=== PATIENT | female | born 1980 | race Hispanic/Latino ===

== ENCOUNTER 2018-07-11 20:01 | Emergency (ER) | payer SELFPAY ==
[2018-07-11 21:43] LABS: Urine Blood 3+ (NEG); Urine Glucose NEGATIVE (NEG); Urine Protein NEGATIVE (NEG); Urine Specific Gravity 1.025 (1.005-1.030); Urine pH 6.5 (5.0-7.0)
[2018-07-11 22:04] LABS: Absolute Lymphocytes (CBC) 3.1 K/uL (0.7-4.9); Absolute Monocytes 0.6 K/uL (0.1-1.3); Absolute Neutrophil 4.3 K/uL (1.8-8.0); Basophils % 0.6 % (0-1.3); Eosinophils % 1.7 % (0-4.4); Hematocrit 42.3 % (36.0-45.0); Lymphocytes % 37.8 % (15.3-44.8); MCH 31.4 pg (27.0-35.0); MCV 90.4 fL (80-100); MPV 9.9 fL (7.6-11.3); Monocytes % 7.2 % (3.3-12.3); RBC Red Blood Cell Count 4.68 M/uL (3.86-4.86)
[2018-07-11] MEDS ORDERED: NA CHLORIDE 0.9% 1,000 ML ONE (22:24)
[2018-07-11] MEDS ORDERED: PANTOPRAZOLE 40 MG INJ ONE (22:24)
[2018-07-11 22:32] LABS: Albumin 4.2 g/dL (3.4-5.0); Bilirubin Direct 0.1 mg/dL (0-0.2); Bilirubin Total 0.4 mg/dL (0.2-1.0); Potassium 3.7 mmol/L (3.5-5.1); Protein, Total 7.9 g/dL (6.4-8.2)
--- NOTE | 2018-07-11 23:02 | EDPHYS ---
Physician Documentation [facility] Name: Charmaine Motley Age: 37 yrs Sex: Female : 1980 Arrival Date: 07/11/2018 Time: 20:09 Bed 18 Private MD: ED Physician Osiel Concepcion HPI: 07/11 21:35 This 37 yrs old Female presents to ER via Ambulatory with complaints of Bloody yasmin Stools. 21:35 The patient presents with abdominal pain in the epigastric area. Onset: The yasmin symptoms/episode began/occurred 3 day(s) ago. The symptoms do not radiate. Associated signs and symptoms: Pertinent positives: blood in stools, palpitations. Modifying factors: The symptoms are alleviated by nothing, the symptoms are aggravated by nothing. Severity of pain: At its worst the pain was mild in the emergency department the pain is unchanged. 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 - Social history:: Smoking status: Patient/guardian denies using tobacco. - Ebola Screening: : No symptoms or risks identified at this time. - Family history:: not pertinent. ROS: 21:35 Constitutional: Negative for fever, chills, and weight loss, Eyes: Negative for injury, yasmin pain, redness, and discharge, ENT: Negative for injury, pain, and discharge, Neck: Negative for injury, pain, and swelling, Cardiovascular: Negative for chest pain, palpitations, and edema, Respiratory: Negative for shortness of breath, cough, wheezing, and pleuritic chest pain, : Negative for injury, bleeding, discharge, and swelling, MS/Extremity: Negative for injury and deformity, Skin: Negative for injury, rash, and discoloration, Neuro: Negative for headache, weakness, numbness, tingling, and seizure. 21:35 Abdomen/GI: Positive for rectal bleeding. Exam: 21:35 Constitutional: This is a well developed, well nourished patient who is awake, alert, yasmin and in no acute distress. Head/Face: Normocephalic, atraumatic. Eyes: Pupils equal round and reactive to light, extra-ocular motions intact. Lids and lashes normal. Conjunctiva and sclera are non-icteric and not injected. Cornea within normal limits. Periorbital areas with no swelling, redness, or edema. ENT: Nares patent. No nasal discharge, no septal abnormalities noted. Tympanic membranes are normal and external auditory canals are clear. Oropharynx with no redness, swelling, or masses, exudates, or evidence of obstruction, uvula midline. Mucous membranes moist. Neck: Trachea midline, no thyromegaly or masses palpated, and no cervical lymphadenopathy. Supple, full range of motion without nuchal rigidity, or vertebral point tenderness. No Meningismus. Chest/axilla: Normal chest wall appearance and motion. Nontender with no deformity. No lesions are appreciated. Cardiovascular: Regular rate and rhythm with a normal S1 and S2. No gallops, murmurs, or rubs. Normal PMI, no JVD. No pulse deficits. Respiratory: Lungs have equal breath sounds bilaterally, clear to auscultation and percussion. No rales, rhonchi or wheezes noted. No increased work of breathing, no retractions or nasal flaring. Back: No spinal tenderness. No costovertebral tenderness. Full range of motion. Skin: Warm, dry with normal turgor. Normal color with no rashes, no lesions, and no evidence of cellulitis. MS/ Extremity: Pulses equal, no cyanosis. Neurovascular intact. Full, normal range of motion. Neuro: Awake and alert, GCS 15, oriented to person, place, time, and situation. Cranial nerves II-XII grossly intact. Motor strength 5/5 in all extremities. Sensory grossly intact. Cerebellar exam normal. Normal gait. Psych: Awake, alert, with orientation to person, place and time. Behavior, mood, and affect are within normal limits. 21:35 Abdomen/GI: Rectal exam: is unremarkable, rectal tone normal, Stool: normal, guaiac negative, Liver: no appreciated palpable abnormalities, Hernia: not appreciated. Vital Signs: 20:43 BP 115 / 110; Pulse 79; Resp 18; Temp 97.2; Pulse Ox 100% ; Weight 52.62 kg; Height 5 ea ft. 2 in. (157.48 cm); Pain 0/10; 21:30 BP 137 / 83; Pulse 65; Resp 18; Pulse Ox 98% on R/A; ea 22:30 BP 145 / 81; Pulse 60; Resp 16; Pulse Ox 98% on R/A; ea 23:51 BP 144 / 86; Pulse 78; Resp 18; Pulse Ox 99% on R/A; ea 20:43 Body Mass Index 21.22 (52.62 kg, 157.48 cm) MDM: 21:14 Patient medically screened. [facility] 21:38 Data reviewed: vital signs, nurses notes, lab test result(s), EKG. [facility] 07/11 21:02 Order name: Basic Metabolic Panel; Complete Time: 23:00 07/11 21:02 Order name: CBC with Diff; Complete Time: 23:00 07/11 21:02 Order name: Hepatic Function; Complete Time: 23:00 07/11 21:02 Order name: Lipase; Complete Time: 23:00 07/11 21:23 Order name: Troponin (emerg Dept Use Only); Complete Time: 23:00 [facility] 07/11 21:11 Order name: EKG; Complete Time: 21:12 mt 07/11 21:36 Order name: Urine Dipstick--Ancillary (enter results); Complete Time: 23:00 ms 07/11 21:36 Order name: Urine --Ancillary (enter results); Complete Time: 23:00 ms 07/11 21:02 Order name: IV Saline Lock; Complete Time: 21:10 07/11 21:02 Order name: Labs collected and sent; Complete Time: 21:10 07/11 21:11 Order name: EKG - Nurse/Tech; Complete Time: 21:11 mt Administered Medications: 22:15 Drug: NS 0.9% 1000 ml Route: IV; Rate: 1 bolus; Site: left antecubital; ea 23:50 Follow up: Response: No adverse reaction; IV Status: Completed infusion; IV Intake: ea 1000ml 22:15 Drug: ProTONIX 40 mg Route: IVP; Site: left antecubital; ea 23:51 Follow up: Response: No adverse reaction ea 23:20 Drug: Cipro 500 mg Route: PO; ea 23:51 Follow up: Response: No adverse reaction ea 23:20 Drug: Norvasc 5 mg Route: PO; ea 23:51 Follow up: Response: No adverse reaction ea Disposition: 07/11/18 23:02 Discharged to Home. Impression: Functional dyspepsia, Gastrointestinal hemorrhage, unspecified - lower, stable, Essential (primary) hypertension, Urinary tract infection, site not specified. - Condition is Stable. - Discharge Instructions: Gastrointestinal Bleeding, Hypertension, Indigestion, Rectal Bleeding, Urinary Tract Infection, Adult, Indigestion, [id number], Rectal Bleeding, [id number], Managing Your Hypertension. - Prescriptions for Protonix 40 mg Oral Tablet - take 1 tablet by ORAL route once daily; 30 tablet. Bentyl 20 mg Oral Tablet - take 1 tablet by ORAL route every 6 hours As needed; 20 tablet. Cipro 250 mg Oral Tablet - take 1 tablet by ORAL route every 12 hours; 10 tablet. Norvasc 5 mg Oral Tablet - take 1 tablet by ORAL route once daily; 20 tablet. - Medication Reconciliation Form, Thank You Letter, Antibiotic Education, Prescription Opioid Use form. - Follow up: Private Physician; When: 2 - 3 days; Reason: Recheck today's complaints, Continuance of care, Re-evaluation by your physician. Follow up: Eric Oliver; When: 2 - 3 days; Reason: Recheck today's complaints, Re-evaluation by your physician. - Problem is new. - Symptoms have improved. Signatures: Dispatcher [employer] [facility] Osiel Concepcion MD MD cha Thompson, [facility] Michelle Marie RN RN ea Corrections: (The following items were deleted from the chart) 22:48 21:03 Creatinine for Radiology+C.LAB.BRZ ordered. [facility] 23:53 23:02 07/11/2018 23:02 Discharged to Home. Impression: Functional dyspepsia; ea Gastrointestinal hemorrhage, unspecified - lower, stable; Essential (primary) hypertension; Urinary tract infection, site not specified. Condition is Stable. Discharge Instructions: Gastrointestinal Bleeding, Indigestion, Rectal Bleeding, Indigestion, [id number], Rectal Bleeding, Jkzm-pu-Pcnw. Prescriptions for Protonix 40 mg Oral Tablet - take 1 tablet by ORAL route once daily; 30 tablet, Bentyl 20 mg Oral Tablet - take 1 tablet by ORAL route every 6 hours As needed; 20 tablet. and Forms are Medication Reconciliation Form, Thank You Letter, Antibiotic Education, Prescription Opioid Use. Follow up: Private Physician; When: 2 - 3 days; Reason: Recheck today's complaints, Continuance of care, Re-evaluation by your physician. Follow up: Eric Oliver; When: 2 - 3 days; Reason: Recheck today's complaints, Re-evaluation by your physician. Problem is new. Symptoms have improved. yasmin
--- NOTE | 2018-07-11 23:02 | ER ---
Nurse's Notes [facility] Name: Charmaine Motley Age: 37 yrs Sex: Female : 1980 Arrival Date: 07/11/2018 Time: 20:09 Bed 18 Private MD: Diagnosis: Functional dyspepsia;Gastrointestinal hemorrhage, unspecified-lower, stable;Essential (primary) hypertension;Urinary tract infection, site not specified Presentation: 07/11 20:39 Presenting complaint: Patient states: Pt reports she started having acid reflux for the ea past three weeks, had one bright red bloody stool on Monday. Pt reported she went to a clinic in [place] about a week ago and was diagnosed with gastritis and was prescribed Flagyl. Pt verbalized she has been very anxious about her health and has lost 20 pounds in the past three weeks. Transition of care: patient was not received from another setting of care. Onset of symptoms was July 11, 2018. Risk Assessment: Do you want to hurt yourself or someone else? Patient reports no desire to harm self or others. Initial Sepsis Screen: Does the patient meet any 2 criteria? No. Patient's initial sepsis screen is negative. Does the patient have a suspected source of infection? No. Patient's initial sepsis screen is negative. Care prior to arrival: None. 20:39 Method Of Arrival: Ambulatory ea 20:39 Acuity: JOSEE 3 ea Triage Assessment: 20:44 General: Appears in no apparent distress. Behavior is cooperative, appropriate for age, ea anxious. Pain: Denies pain. Neuro: Level of Consciousness is awake, alert, obeys commands, Oriented to person, place, time, situation. Cardiovascular: Heart tones S1 S2 present Patient's skin is warm and dry. Respiratory: Airway is patent Respiratory effort is even, unlabored, Respiratory pattern is regular, symmetrical, Breath sounds are clear bilaterally. GI: Abdomen is Bowel sounds present X 4 quads. Derm: Skin is pink, warm \T\ dry. Musculoskeletal: Circulation, motion, and sensation intact. 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 - Social history:: Smoking status: Patient/guardian denies using tobacco. - Ebola Screening: : No symptoms or risks identified at this time. - Family history:: not pertinent. Screenin:43 Abuse screen: Denies threats or abuse. Nutritional screening: No deficits noted. ea Tuberculosis screening: No symptoms or risk factors identified. Fall Risk None identified. Assessment: 20:44 Reassessment: See triage assessment. ea 21:30 Reassessment: Patient and/or family updated on plan of care and expected duration. Pain ea level reassessed. Patient is alert, oriented x 3, equal unlabored respirations, skin warm/dry/pink. 22:30 Reassessment: Patient and/or family updated on plan of care and expected duration. Pain ea level reassessed. Patient is alert, oriented x 3, equal unlabored respirations, skin warm/dry/pink. Vital Signs: 20:43 BP 115 / 110; Pulse 79; Resp 18; Temp 97.2; Pulse Ox 100% ; Weight 52.62 kg; Height 5 ea ft. 2 in. (157.48 cm); Pain 0/10; 21:30 BP 137 / 83; Pulse 65; Resp 18; Pulse Ox 98% on R/A; ea 22:30 BP 145 / 81; Pulse 60; Resp 16; Pulse Ox 98% on R/A; ea 23:51 BP 144 / 86; Pulse 78; Resp 18; Pulse Ox 99% on R/A; ea 20:43 Body Mass Index 21.22 (52.62 kg, 157.48 cm) ea ED Course: 20:09 Patient arrived in ED. ds1 20:38 Michelle Marie, QUINN is Primary Nurse. ea 20:42 Triage completed. ea 20:45 Patient has correct armband on for positive identification. Bed in low position. Call ea light in reach. Side rails up X2. 20:48 Arm band placed on right wrist. Patient placed in an exam room, on a stretcher, on ea pulse oximetry. 21:14 Osiel Concepcion MD is Attending Physician. yasmin 21:57 Inserted saline lock: 22 gauge in left antecubital area, using aseptic technique. Blood mt collected. 23:02 Eric Oliver MD is Referral Physician. yasmin 23:11 No provider procedures requiring assistance completed. ea 23:50 IV discontinued, intact, bleeding controlled, No redness/swelling at site. Pressure ea dressing applied. Administered Medications: 22:15 Drug: NS 0.9% 1000 ml Route: IV; Rate: 1 bolus; Site: left antecubital; ea 23:50 Follow up: Response: No adverse reaction; IV Status: Completed infusion; IV Intake: ea 1000ml 22:15 Drug: ProTONIX 40 mg Route: IVP; Site: left antecubital; ea 23:51 Follow up: Response: No adverse reaction ea 23:20 Drug: Cipro 500 mg Route: PO; ea 23:51 Follow up: Response: No adverse reaction ea 23:20 Drug: Norvasc 5 mg Route: PO; ea 23:51 Follow up: Response: No adverse reaction ea Intake: 23:50 IV: 1000ml; Total: 1000ml. ea Outcome: 23:02 Discharge ordered by . [facility] 23:52 Discharged to home ambulatory. ea 23:52 Condition: improved 23:52 Discharge instructions given to patient, Instructed on discharge instructions, follow up and referral plans. medication usage, Demonstrated understanding of instructions, follow-up care, medications, Prescriptions given X 4. 23:53 Patient left the ED. ea Signatures: Osiel Concepcion MD MD cha Sanford, Demi ds1 Maribel Fuller mt, Elena, RN RN may
[2018-07-11] MEDS ORDERED: AMLODIPINE 5 MG TAB ONE (23:32)
[2018-07-11] MEDS ORDERED: CIPROFLOXACIN HCL 500 MG TAB ONE (23:32)
--- NOTE | 2018-07-13 06:54 | EKG ---
Test Date: 2018-07-11 Test Time: 21:09:28 Process Description Writer: GEOVANNI MEASUREMENT RESULTS: Intervals: Rate: 83 PA: 130 QRSD: 74 QT: 378 QTc: 444 [place]: P: 72 PA: 130 QRS: 56 T: 26 INTERPRETIVE STATEMENTS: Sinus rhythm with marked sinus arrhythmia Nonspecific T wave abnormality Abnormal ECG No previous ECG available for comparison Electronically Signed On 07-13-18 06:49:40 CDT by Vishnu Hu
== END 2018-07-11 23:53 | disposition home or self-care (01) ==
LOC: ER 20:01
DX: K30 Functional dyspepsia (principal); N39.0 Urinary tract infection, site not specified; I10 Essential (primary) hypertension; E78.5 Hyperlipidemia, unspecified
CPT/HCPCS: 80048; 80076; 81003; 81025; 83690; 84484; 85025; 93005; 96361; 96374; 99284; C9113; J7030

== ENCOUNTER 2018-09-08 00:37 | Emergency (ER) | payer SELFPAY ==
--- NOTE | 2018-09-08 02:52 | ER ---
Nurse's Notes [facility] Name: Charmaine Motley Age: 37 yrs Sex: Female : 1980 Arrival Date: 09/08/2018 Time: 00:39 Bed 15 Private MD: Diagnosis: Acute nasopharyngitis [common cold] Presentation: 09/08 00:41 Presenting complaint: Patient states: I have been having a soar throat for the past two jb4 weeks, and it feels like I have a lump in my throat. Transition of care: patient was not received from another setting of care. 00:41 Method Of Arrival: Ambulatory jb4 00:41 Onset of symptoms was August 25, 2018. Risk Assessment: Do you want to hurt yourself jb4 or someone else? Patient reports no desire to harm self or others. Initial Sepsis Screen: Does the patient meet any 2 criteria? No. Patient's initial sepsis screen is negative. Does the patient have a suspected source of infection? No. Patient's initial sepsis screen is negative. Care prior to arrival: None. 00:41 Acuity: JOSEE 4 jb4 Triage Assessment: 00:41 General: Appears in no apparent distress. uncomfortable, Behavior is calm, cooperative, jb4 appropriate for age. Pain: Complains of pain in anterior aspect of left upper chest, abdomen and submental area Pain does not radiate. Pain currently is 5 out of 10 on a pain scale. EENT: Throat is clear is reddened. Neuro: Level of Consciousness is awake, alert, obeys commands, Oriented to person, place, time, situation. Cardiovascular: Patient's skin is warm and dry. Respiratory: Airway is patent Respiratory effort is even, unlabored, Respiratory pattern is regular, symmetrical, Breath sounds are clear bilaterally. GI: Reports nausea, vomiting. : No signs and/or symptoms were reported regarding the genitourinary system. Derm: Skin is intact, Skin is pink, warm \T\ dry. Musculoskeletal: Circulation, motion, and sensation intact. INDIAN NANNY: 00:41 LMP 05/16/2018 jb4 Historical: - Allergies: 00:41 No Known Allergies; jb4 - Home Meds: 00:41 amlodipine 5 mg tab 1 tab once daily [Active]; jb4 - PMHx: 00:41 GERD; Hyperlipidemia; Hypertension; ADD/ADHD; jb4 - PSHx: 00:41 abdominoplasty; breast implants.; breast implant removal; jb4 - Immunization history:: Adult Immunizations up to date. - Social history:: Smoking status: Patient/guardian denies using tobacco, Patient/guardian denies using alcohol. - Ebola Screening: : No symptoms or risks identified at this time. Screenin:41 Abuse screen: Denies threats or abuse. Nutritional screening: No deficits noted. jb4 Tuberculosis screening: No symptoms or risk factors identified. Fall Risk None identified. Assessment: 00:41 General: see triage assessment.. Respiratory: Airway is patent Respiratory effort is jb4 even, unlabored, Respiratory pattern is regular, symmetrical, Breath sounds are clear bilaterally. 01:58 Reassessment: Patient appears in no apparent distress at this time. Patient and/or jb4 family updated on plan of care and expected duration. Pain level reassessed. Patient is alert, oriented x 3, equal unlabored respirations, skin warm/dry/pink. 03:03 Reassessment: Patient appears in no apparent distress at this time. Patient and/or jb4 family updated on plan of care and expected duration. Pain level reassessed. Patient is alert, oriented x 3, equal unlabored respirations, skin warm/dry/pink. Vital Signs: 00:41 BP 139 / 89; Pulse 72; Resp 16; Temp 97.7(O); Pulse Ox 98% on R/A; Weight 52.62 kg (R); jb4 Height 5 ft. 2 in. (157.48 cm) (R); 01:58 BP 125 / 75; Pulse 76; Resp 16; Pulse Ox 100% on R/A; jb4 00:41 Body Mass Index 21.22 (52.62 kg, 157.48 cm) jb4 ED Course: 00:39 Patient arrived in ED. al2 00:41 Arm band placed on left wrist. jb4 00:41 Patient has correct armband on for positive identification. Bed in low position. Call jb4 light in reach. Side rails up X 1. Pulse ox on. NIBP on. 00:53 Nahid Swift NP is PHCP. pm1 00:53 Juanito Smith MD is Attending Physician. pm1 01:09 Yo Salvador, RN is Primary Nurse. jb4 01:13 Triage completed. jb4 01:57 Strep Sent. jb4 01:57 Miller Screen Profile Sent. jb4 03:03 No provider procedures requiring assistance completed. Patient did not have IV access jb4 during this emergency room visit. Administered Medications: No medications were administered Outcome: 02:51 Discharge ordered by MD. pm1 03:03 Discharged to home ambulatory, with family. jb4 03:03 Condition: stable 03:03 Discharge instructions given to patient, family, Instructed on discharge instructions, follow up and referral plans. medication usage, Demonstrated understanding of instructions, follow-up care, medications, Prescriptions given X 1. 03:05 Patient left the ED. jb4 Signatures: Nahid Swift NP HUMAN RESOURCES COMPLIANCE MANAGER pm1 Yo Salvador RN RN jb4 Nena Renteria Corrections: (The following items were deleted from the chart) 01:58 00:41 Respiratory: Airway is patent Respiratory effort is even, unlabored, Respiratory jb4 pattern is regular, symmetrical, jb4
--- NOTE | 2018-09-08 02:52 | EDPHYS ---
Physician Documentation [facility] Name: Charmaine Motley Age: 37 yrs Sex: Female : 1980 Arrival Date: 09/08/2018 Time: 00:39 Bed 15 Private MD: ED Physician Juanito Simth HPI: 09/08 02:05 This 37 yrs old Female presents to ER via Ambulatory with complaints of Sore pm1 Throat, Cough. 02:05 The patient presents with sore throat. The patient describes throat pain as constant, pm1 raw. Onset: The symptoms/episode began/occurred 2 week(s) ago. Severity of symptoms: in the emergency department the symptoms are unchanged. Modifying factors: The symptoms are alleviated by nothing, the symptoms are aggravated by foods, swallowing, Patient's oral intake status: good. Modifying factors: Denies contact with similarly ill indivduals. Associated signs and symptoms: Pertinent positives: cough, Pertinent negatives chest pain, fever, flu-like symptoms, nausea, shortness of breath, vomiting. The patient has not recently seen a physician. 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 - Social history:: Smoking status: Patient/guardian denies using tobacco, Patient/guardian denies using alcohol. - Ebola Screening: : No symptoms or risks identified at this time. ROS: 02:05 Constitutional: Negative for fever, chills, and weight loss, Eyes: Negative for injury, pm1 pain, redness, and discharge, Neck: Negative for injury, pain, and swelling, Cardiovascular: Negative for chest pain, palpitations, and edema, Respiratory: Negative for shortness of breath, cough, wheezing, and pleuritic chest pain, Abdomen/GI: Negative for abdominal pain, nausea, vomiting, diarrhea, and constipation, Back: Negative for injury and pain. 02:05 : Negative for injury, bleeding, discharge, and swelling, MS/Extremity: Negative for injury and deformity, Skin: Negative for injury, rash, and discoloration, Neuro: Negative for headache, weakness, numbness, tingling, and seizure. 02:05 ENT: Positive for ear pain, sore throat, Negative for drainage from ear(s), sinus congestion, sinus pain, difficulty swallowing, difficulty handling secretions, hoarseness. Exam: 02:05 Constitutional: This is a well developed, well nourished patient who is awake, alert, pm1 and in no acute distress. Head/Face: Normocephalic, atraumatic. Eyes: Pupils equal round and reactive to light, extra-ocular motions intact. Lids and lashes normal. Conjunctiva and sclera are non-icteric and not injected. Cornea within normal limits. Periorbital areas with no swelling, redness, or edema. ENT: Nares patent. No nasal discharge, no septal abnormalities noted. Tympanic membranes are normal and external auditory canals are clear. Oropharynx with no redness, swelling, or masses, exudates, or evidence of obstruction, uvula midline. Mucous membranes moist. Neck: Trachea midline, no thyromegaly or masses palpated, and no cervical lymphadenopathy. Supple, full range of motion without nuchal rigidity, or vertebral point tenderness. No Meningismus. Chest/axilla: Normal chest wall appearance and motion. Nontender with no deformity. No lesions are appreciated. Cardiovascular: Regular rate and rhythm with a normal S1 and S2. No gallops, murmurs, or rubs. Normal PMI, no JVD. No pulse deficits. Respiratory: Lungs have equal breath sounds bilaterally, clear to auscultation and percussion. No rales, rhonchi or wheezes noted. No increased work of breathing, no retractions or nasal flaring. Abdomen/GI: Soft, non-tender, with normal bowel sounds. No distension or tympany. No guarding or rebound. No evidence of tenderness throughout. Back: No spinal tenderness. No costovertebral tenderness. Full range of motion. Skin: Warm, dry with normal turgor. Normal color with no rashes, no lesions, and no evidence of cellulitis. MS/ Extremity: Pulses equal, no cyanosis. Neurovascular intact. Full, normal range of motion. 02:05 Neuro: Orientation: is normal, Motor: is normal, moves all fours. Vital Signs: 00:41 BP 139 / 89; Pulse 72; Resp 16; Temp 97.7(O); Pulse Ox 98% on R/A; Weight 52.62 kg (R); jb4 Height 5 ft. 2 in. (157.48 cm) (R); 01:58 BP 125 / 75; Pulse 76; Resp 16; Pulse Ox 100% on R/A; jb4 00:41 Body Mass Index 21.22 (52.62 kg, 157.48 cm) jb4 MDM: 00:53 Patient medically screened. pm1 02:07 Data reviewed: vital signs. Data interpreted: Pulse oximetry: on room air is 100 %. pm1 Interpretation: normal. 02:50 Counseling: I had a detailed discussion with the patient and/or guardian regarding: the pm1 historical points, exam findings, and any diagnostic results supporting the discharge/admit diagnosis, lab results, the need for outpatient follow up, to return to the emergency department if symptoms worsen or persist or if there are any questions or concerns that arise at home. 12 01:07 Order name: Strep; Complete Time: 02:38 pm1 09/08 01:07 Order name: Humphreys Screen Profile; Complete Time: 02:50 pm1 09/08 02:30 Order name: Throat Culture EDMS Administered Medications: No medications were administered Disposition: 03:39 Co-signature as Attending Physician, Juanito Smith MD. ma2 Disposition: 09/08/18 02:51 Discharged to Home. Impression: Acute nasopharyngitis [common cold]. - Condition is Stable. - Discharge Instructions: Antibiotic Resistance, Upper Respiratory Infection, Adult. - Prescriptions for Guaifenesin AC 10- 100 mg/5 mL Oral Liquid - take 10 milliliter by ORAL route every 4 hours As needed; 240 milliliter. - Medication Reconciliation Form, Thank You Letter, Antibiotic Education form. - Follow up: Emergency Department; When: As needed; Reason: Worsening of condition. Follow up: Private Physician; When: 2 - 3 days; Reason: Recheck today's complaints, Continuance of care, Re-evaluation by your physician. - Problem is new. - Symptoms have improved. Signatures: Dispatcher [employer] EDMS Nahid Swift, MARIA [employer] SALESPERSON pm1 Yo Salvador, RN RN jb4 Juanito Smith MD MD ma2 Corrections: (The following items were deleted from the chart) 03:05 02:51 09/08/2018 02:51 Discharged to Home. Impression: Acute nasopharyngitis [common jb4 cold]. Condition is Stable. Forms are Medication Reconciliation Form, Thank You Letter, Antibiotic Education, Prescription Opioid Use. Follow up: Emergency Department; When: As needed; Reason: Worsening of condition. Follow up: Private Physician; When: 2 - 3 days; Reason: Recheck today's complaints, Continuance of care, Re-evaluation by your physician. Problem is new. Symptoms have improved. pm1
== END 2018-09-08 03:05 | disposition home or self-care (01) ==
LOC: ER 00:37
DX: J00 Acute nasopharyngitis [common cold] (principal); I10 Essential (primary) hypertension
CPT/HCPCS: 36415; 86308; 87070; 87081; 99283